=== PATIENT | male | born 1990 | race Caucasian/White ===

== ENCOUNTER 2020-09-30 10:30 | Inpatient (IN) | payer OTHER ==
[2020-09-30 10:43] VITALS: BMI 28.9
[2020-09-30] MEDS ORDERED: SODIUM CHLORIDE 0.9% 500 ML INFUS.BAG IV ONE (11:05)
[2020-09-30] MEDS ORDERED: ACETAMINOPHEN 1000 MG/100 ML VIAL (NON FORMULARY) IVPB ONE (11:05)
[2020-09-30 11:32] LABS: BASO % 0.7 % (0-2.0); EOS % 1.9 % (0-4.5); HEMATOCRIT 45.4 % (35.4-49); HEMOGLOBIN 15.8 GM/dL (11.7-16.9); MCH 32.6 pg (25.7-33.7); MCHC 34.8 g/dl (32.0-35.9); MEAN CELL VOLUME 93.5 fl (80-96); MEAN PLT VOLUME 8.4 fl (7.5-11.1); MONO % 12.9 % (3.8-10.2); NEUT % 58.5 % (42.8-82.8); PLATELET COUNT 265 K/MM3 (134-434); RBC 4.85 M/mm3 (4.00-5.60); RDW 13.5 % (11.9-15.9); WHITE BLOOD COUNT 5.8 K/mm3 (4.0-10.0)
[2020-09-30 11:45] LABS: INR 0.93 (0.83-1.09); PROTHROMBIN TIME (PATIENT) 11.3 SEC (9.7-13.0)
[2020-09-30 11:48] LABS: ACTIVATED PTT 31.9 SECONDS (25.2-36.5)
[2020-09-30 11:49] LABS: POTASSIUM 3.9 mmol/L (3.5-5.1)
[2020-09-30 11:51] LABS: ALBUMIN 3.9 g/dl (3.4-5.0); CALCIUM 8.7 mg/dL (8.5-10.1)
[2020-09-30 11:52] LABS: BLOOD UREA NITROGEN 10.2 mg/dL (7-18)
[2020-09-30 11:55] LABS: CREATININE 0.9 mg/dL (0.55-1.3)
[2020-09-30 11:56] LABS: BILIRUBIN,TOTAL 0.2 mg/dL (0.2-1); TOT PROT 7.7 g/dl (6.4-8.2)
[2020-09-30] MEDS ORDERED: morphine CARPU-JECT 4 MG/1 ML DISP.SYRIN IVPUSH ONE (13:09)
[2020-09-30] MEDS ORDERED: morphine SULFATE 4 MG/ML VIAL ONE (13:14)
[2020-09-30] MEDS ORDERED: CEFTRIAXONE 1 GM/50 ML BAG ONE (15:07)
[2020-09-30] MEDS ORDERED: MORPHINE SULFATE 2 MG/ML VIAL IM PRN (15:26)
[2020-09-30] MEDS: DEXTROSE 5%-NORMAL SALINE 1,000 ML IV SCH (16:01)
[2020-09-30 17:17] LABS: URINE APPEARANCE CLEAR; URINE BILIRUBIN NEGATIVE (NEGATIVE); URINE COLOR YELLOW; URINE GLUCOSE (UA) NEGATIVE (NEGATIVE); URINE KETONE NEGATIVE (NEGATIVE); URINE LEUK ESTERASE NEGATIVE (NEGATIVE); URINE NITRITE NEGATIVE (NEGATIVE); URINE PROTEIN NEGATIVE (NEGATIVE); URINE UROBILINOGEN 0.2 mg/dL (0.2-1.0)
[2020-10-01] MEDS ORDERED: cefTRIAXone SODIUM 1 GM VIAL ONE (11:55)
[2020-10-01] MEDS ORDERED: DEXTROSE 5%-WATER - 50 ML IVPB ONE (11:55)
[2020-10-01] MEDS: DEXTROSE 5%-NORMAL SALINE 1,000 ML IV SCH (11:59)
[2020-10-01] MEDS: CEFTRIAXONE 1 GM in DEXTROSE 5%-WATER - 50 ML IVPB SCH (12:00)
[2020-10-02] MEDS ORDERED: DEXTROSE 5%-WATER - 50 ML IVPB ONE (10:02)
[2020-10-02] MEDS ORDERED: cefTRIAXone SODIUM 1 GM VIAL ONE (10:02)
[2020-10-02] MEDS: CEFTRIAXONE 1 GM in DEXTROSE 5%-WATER - 50 ML IVPB SCH (10:13)
[2020-10-03] MEDS ORDERED: cefTRIAXone SODIUM 1 GM VIAL ONE (09:21)
[2020-10-03] MEDS ORDERED: DEXTROSE 5%-WATER - 50 ML IVPB ONE (09:22)
[2020-10-03] MEDS: CEFTRIAXONE 1 GM in DEXTROSE 5%-WATER - 50 ML IVPB SCH (09:42)
[2020-10-03] MEDS ORDERED: fentaNYL CITRATE 250 MCG/5 ML VIAL ONE (11:21)
[2020-10-03] MEDS ORDERED: MIDAZOLAM HCL 2 MG/2 ML SINGLE DOSE VIAL ONE ×2 (11:22→14:10)
[2020-10-03] MEDS ORDERED: DEXTROSE 5%-0.45% SALINE 1,000 ML IV SCH (13:00)
[2020-10-03] MEDS ORDERED: PROPOFOL 20 ML ONE ×2 (14:10)
[2020-10-03] MEDS ORDERED: LIDOCAINE HCL/PF 2% SDV 5ML VIAL ONE (14:10)
[2020-10-03] MEDS ORDERED: ROCURONIUM BROMIDE 50 MG/5 ML SYRINGE ONE (14:11)
[2020-10-03] MEDS ORDERED: ONDANSETRON 4 MG/2 ML VIAL ONE (14:29)
[2020-10-03] MEDS ORDERED: DEXAMETHASONE SOD PHOSPHATE 4 MG/1 ML VIAL ONE (14:29)
[2020-10-03] MEDS ORDERED: BUPIVACAINE HCL/PF 0.5% (5 MG/ML) 30 ML VIAL IJ ONE ×2 (14:39)
[2020-10-03] MEDS ORDERED: GLYCOPYRROLATE 0.2 MG/1 ML VIAL ONE (15:11)
[2020-10-03] MEDS ORDERED: NEOSTIGMINE METHYLSULFATE 0.5 MG/1 ML - 10 ML MDV ONE (15:12)
[2020-10-03] MEDS ORDERED: KETOROLAC TROMETHAMINE 30 MG/1 ML VIAL ONE (15:29)
[2020-10-03] MEDS ORDERED: ONDANSETRON 4 MG/2 ML VIAL IVPUSH PRN ×2 (15:55→17:37)
[2020-10-03] MEDS ORDERED: LACTATED RINGERS SOLUTION 1,000 ML IV SCH ×2 (16:00→17:37)
[2020-10-03] MEDS ORDERED: ACETAMINOPHEN 1000 MG/100 ML VIAL (NON FORMULARY) IVPB ONE ×2 (16:03→17:15)
[2020-10-03] MEDS ORDERED: oxyCODONE HCL 5 MG TABLET PO PRN (16:15)
[2020-10-03] MEDS ORDERED: ACETAMINOPHEN 325 MG TABLET (FP) PO PRN (16:15)
[2020-10-03] MEDS ORDERED: ACETAMINOPHEN INJECTION 100 ML IVPB ONE (17:12)
[2020-10-03] MEDS: MORPHINE SULFATE 2 MG/ML VIAL IM PRN (20:20)
[2020-10-04] MEDS: oxyCODONE HCL 5 MG TABLET PO PRN ×3 (01:02→11:55)
[2020-10-04] MEDS: MORPHINE SULFATE 2 MG/ML VIAL IM PRN (02:33)
[2020-10-04] MEDS ORDERED: cefTRIAXone SODIUM 1 GM VIAL ONE (09:22)
[2020-10-04] MEDS ORDERED: DEXTROSE 5%-WATER - 50 ML IVPB ONE (09:22)
[2020-10-04] MEDS ORDERED: CEFTRIAXONE 1 GM in DEXTROSE 5%-WATER - 50 ML IVPB SCH (10:00)
[2020-10-04 10:18] LABS: BASO % 0.4 % (0-2.0); EOS % 0.3 % (0-4.5); HEMATOCRIT 44.7 % (35.4-49); HEMOGLOBIN 15.5 GM/dL (11.7-16.9); LYMPH % 15.8 % (8-40); MCH 32.4 pg (25.7-33.7); MCHC 34.7 g/dl (32.0-35.9); MEAN CELL VOLUME 93.4 fl (80-96); MEAN PLT VOLUME 8.4 fl (7.5-11.1); MONO % 9.2 % (3.8-10.2); NEUT % 74.3 % (42.8-82.8); PLATELET COUNT 309 K/MM3 (134-434); RBC 4.78 M/mm3 (4.00-5.60); RDW 13.1 % (11.9-15.9); WHITE BLOOD COUNT 8.8 K/mm3 (4.0-10.0)
[2020-10-04 10:23] VITALS: BP 124/72; PULSE 67; TEMP 98.2
[2020-10-04 10:39] LABS: POTASSIUM 3.8 mmol/L (3.5-5.1)
[2020-10-04 10:41] LABS: CALCIUM 8.7 mg/dL (8.5-10.1)
[2020-10-04 10:42] LABS: ALBUMIN 3.4 g/dl (3.4-5.0); BLOOD UREA NITROGEN 8.4 mg/dL (7-18)
[2020-10-04 10:45] LABS: CREATININE 0.9 mg/dL (0.55-1.3)
[2020-10-04 10:47] LABS: TOT PROT 6.8 g/dl (6.4-8.2)
== END 2020-10-04 13:43 | disposition home or self-care (01) | DRG 263 ==
LOC: JER 10:30 → JERBED 14:07 → J7W 10-01 11:07
PROVIDERS: ADMIT Internal Medicine; ATTEND Internal Medicine
PROC: 0FT44ZZ Resection of Gallbladder, Percutaneous Endoscopic Approach (ICD-10-PCS; principal; 2020-10-03 13:30)
DX: K80.00 Calculus of gallbladder with acute cholecystitis without obstruction (principal); R10.11 Right upper quadrant pain
CPT/HCPCS: 36415; 71046-TC-FY; 76700-TC; 80053; 81003; 83605; 83690; 85025; 85610; 85730; 86850; 86900; 86901; 87086; 88304-TC; 93005; 93010; 94760; 99285-25; C9803; J0131; U0003